=== PATIENT | female | born 2000 | race African-American/Black ===

== ENCOUNTER 2025-01-24 10:26 | Outpatient (REF) | payer OTHER, SELFPAY ==
--- OUTSIDE RECORDS SUMMARY | 2025-01-24 12:25 | XMS_ITS | Clinical Summary ---
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 2 Active sertraline (ZOLOFT) 50 mg tablet Take 1 tablet (50 mg total) by mouth 1 (one) time each day. 30 tablet 1 5 Active tretinoin (RETIN-A) 0.025 % cream Apply topically at bedtime. 20 g 5 5 06/17/19 26 Active cyclobenzaprine (FLEXERIL) 10 mg tablet Take 1 tablet (10 mg total) by mouth 3 (three) times a day if needed for muscle spasms for up to 10 days. 15 tablet 5 Active ibuprofen (ADVIL,MOTRIN) 400 mg tablet Take 1 tablet (400 mg total) by mouth every 6 (six) hours if needed for mild pain for up to 10 days. 30 tablet 5 01/07/20 25 acetaminophen (TYLENOL) 500 mg tablet Take 1 tablet (500 mg total) by mouth every 6 (six) hours if needed for mild pain for up to 10 days. 30 tablet 5 01/07/20 25 lidocaine (LIDODERM) 5 % patch Apply 1 patch topically 1 (one) time each day for 9 days. Remove & discard patch within 12 hours or as directed by . 9 each 5 01/06/20 25 Active Problems No known active problems Encounters Date Type Department Care Team Description 12/27/2024 11:59 AM EDT - 12/27/2024 2:06 PM EDT Emergency [facility] Emergency [address] [place] [id number] Julianna De Dios MD Strain of neck muscle, initial encounter (Primary Dx) Discharge Disposition: Home or Self Care from Last 3 Months Immunizations Immunization Administration Dates Next Due DTaP (Infanrix) 6wks to less than 7yo ,01/14/2001,02/03/2000,11/23,1999 [id number] (Pentacel) 2mo to less than 5yo 07/08/2000,02/03/2000,1999,05/05 HPV 9-valent (Gardisil) 9yo to less than 46yo 04/23/2016,04/19/2015 HPV, Quadrivalent 01/03/2013 Hepatitis B Pediatric (Enger ix B; Recombivax HB) to less than 20 yo 07/08/2000,1999,1999 IPV Inactivated polio (Ipol) 6wks and older 06/26/2004,01/14/2001,02/03/2000,11/23,1999 Influenza trivalent, 0.5mL, preservative free (Fluarix; FluLaval; Fluzone) ages 6mo and older (Afluria) 3 years and older 02/20/2014 Influenza trivalent, MDCK, 0 .5mL, preservative free (Flucelvax) 6mo and older 04/13/2024 Influenza trivalent, with pr eservative (Fluzone; Afluria) 6mo and older 04/23/2016 Influenza, live, intranasal, trivalent (FluMist) 2yo to less than 50yo 04/19/2015,01/03/2013 MMR, measles mumps and rubel la Live (Priorix; M-M-R II) 12mo and older 12/27/2003,07/08/2000 Meningococcal MCV4P 04/23/2016,12/31/2011 Pneumococcal Conjugate Vacci ne, 7 Valent 01/14/2001 Tdap Tetanus diptheria acell ular pertussis (Boostrix; Adacel) 7yo and older 04/03/2021,11/14/2010 Varicella live (Varivax) 12m o and older 08/16/2009,04/22/2001 Family History Medical History Relation Name Comments Diabetes Maternal Grandmother Hypertension Maternal Grandmother Depression Mother Thyroid disease Mother Asthma Other 1 MATERNAL & SAVAGE RNAL SIDE Other: HEART Other 2 MGGM Relation Name Status Comments Brother treva colvin- Father Alive Maternal Grandmother Alive Mother Alive sonia campos- Other 1 Other 2 Paternal Grandfather Alive Paternal Grandmother Alive Sister 1 Alive opal hazel-1 Sister 2 Alive prakash beckford -01/28/01 Social History Tobacco Use Types Packs/Day Years Used Date Smoking Tobacco: Never Smokeless Tobacco: Never Tobacco Cessation:Counseling Given: Yes Alcohol Use Standard Drinks/Week Comments No 0 (1 standard drink = 0.6 oz pur e alcohol) Housing Instability Answer Date Recorde d Are you worried that in the next 2 months you may not have stable housing? No 04/12/2024 Food Access & Nutrition Answer Date Rec orded Do you have access to a vari ety of food including fruits and vegetables? Yes 04/12/2024 Access to Healthcare Answer Date Record ed Within the last 3 months, ho w many times did you visit the emergency department for your medical care? 0 04/12/2024 Health Literacy Answer Date Recorded How often do you need to hav e someone help you when you read instructions, pamphlets, or other written material from your doctor or pharmacy? Never 04/12/2024 Caregiver: How often do you need to have someone help you when you read instructions, pamphlets, or other written material from your doctor or pharmacy? Not on file 04/12/2024 Financial Risk Answer Date Recorded How hard is it for you to pa y for the very basics like food, housing, medical care, and air conditioning / heating? Not very hard 04/12/2024 Transportation Answer Date Recorded Has the lack of transportati on kept you from meetings, work, or from getting things needed for daily living? No Has the lack of transportati on kept you from medical appointments or from getting medications? No 04/12/2024 Social Isolation Answer Date Recorded How often do you feel lonely or isolated from th ose around you? Often 04/12/2024 Food Risk Answer Date Recorded Within the past 12 months we worried whether our food would run out before we got money to buy more. Never true 04/12/2024 Within the past 12 months th e food we bought just didn't last and we didn't have money to get more. Never true 04/12/2024 Dependent Care Answer Date Recorded Do you need help finding or paying for care for your loved ones. For example, child welfare specialist or elderly care for an older adult? No 04/12/2024 Education Answer Date Recorded Do you think completing more education or training, like finishing a GED, going to college, or learning a trade, would be helpful for you? N/A 04/12/2024 Employment and Income Answer Date Recor ded During the last four weeks, have you been actively looking for work? No 04/12/2024 Living Situation Answer Date Recorded What is your living situation? Unrecognized valu e 04/12/2024 Comments No Sex and Gender Information Value Date Recorded Sex Assigned at Female 02/17/2022 7:25 AM EST Legal Sex Female 7:19 AM EST Gender Identity Female 02/17/2022 7:25 AM EST Sexual Orientation Straight 02/17/2022 7: 25 AM EST Obstetrics History Last Filed Vital Signs Vital Sign Reading Time Taken Comments Blood Pressure 131/67 12/27/2024 11:46 AM EDT Pulse 76 12/27/2024 11:46 AM EDT Temperature 36.5 C (97.7 F) 12/27/2024 11:46 AM EDT Respiratory Rate 18 12/27/2024 11:46 AM EDT Oxygen Saturation 100% 12/27/2024 11:46 AM EDT Inhaled Oxygen Concentration - - Weight 75.8 kg (167 lb) 12/27/2024 11:46 AM EDT Height 152.4 cm (5') 12/27/2024 11:46 AM EDT Body Mass Index 32.61 12/27/2024 11:46 AM EDT Plan of Treatment Health Maintenance Due Date Last Done Comments Cervical Cancer Screening: Pap Smear 07/28/2024 07/28/2021 Influenza Vaccine (#1) 2024 , 02/20/2021, 01/10/2019, Additional history exists Social Influencers of Health Screening 04/12/2025 04/12/2024 Cholesterol Screening (Lipid Panel) 04/13/2029 04/13/2024 DTaP,Tdap,and Td Vaccines (9 - Td or Tdap) 04/03/2031 04/03/2021, 10/27/2018, 11/14/2010, Additional history exists RSV Immunization Adult Patients (1 - 1-dose 75+ series) 2074 HIB Vaccines Completed 07/08/2000, 06/11, 02/03/2000, Additional history exists Hepatitis B Vaccines Completed 07/08/2000, 1999, 1999 Pneumococcal Vaccine: Pediatrics (0 to 5 Years) and At-Risk Patients (6 to 49 Years) Aged Out 01/14/2001 No longer eligible based on patient's age to complete this topic MMR Vaccines Completed 12/27/2003, 07/08/2000 IPV Vaccines Completed 06/26/2004, 08/2000, 07/08/2000, Additional history exists Varicella Vaccines Completed 08/16/2009, 04/22/2001 HPV Vaccines Completed 04/23/2016, 11/2015, 01/03/2013 Meningococcal ACWY Vaccine Completed 04/23/2016, Gonorrhea/Chlamydia Screening Discontinued 09/26/2019 Depression Screening Completed 04/12/2024 HIV Screening Completed 04/13/2024, 09/26/2019 Hepatitis C Screening Completed 04/13/2024, 020 COVID-19 Vaccine Discontinued Hepatitis A Vaccines Aged Out No long er eligible based on patient's age to complete this topic Meningococcal B Vaccine Aged Out No l onger eligible based on patient's age to complete this topic RSV Immunization Patients Under 20 months Aged Out No longer eligible based on patient's age to complete this topic Procedures Procedure Name Priority Date/Time Associated Diagnosis Comments HEPATITIS PANEL, ACUTE WITH REFLEX TO CONFIRMATION Routine 04/13/2024 12:05 PM EST Screen for STD (sexually transmitted disease) HIV 1, 2 ANTIBODY, P24 ANTIGEN WITH REFLEX TO DIFFERENTIATION Routine 04/13/2024 12:05 PM EST Screen for STD (sexually transmitted disease) LIPID PANEL WITH REFLEX TO DIRECT LDL Routine 04/13/2024 12:05 PM EST Screening, lipid HM GONORRHEA/CHLAMYDIA SCRREENING Routine 09/26/2019 from Last 3 Months or Most Recently Relevant to Health Maintenance Results * HIV 1,2 antibody, p24 antigen with reflex to differentiation (04/13/2024 12:05 PM EST) HIV Combo AB/AG Negative Negative LAB CHEMISTRY METHOD 04/13/2024 3:53 PM EST [facility] Blood Venous blood specimen / Unknown Venipuncture / Unknown 04/13/2024 12:05 PM EST 04/13/2024 12:05 PM EST Narrative [facility] - 04/13/2024 3:53 PM EST This assay is a 4th generation assay allowing for earlier detection of HIV infection by detecting the presence of the HIV-1 p24 antigen as well as the traditional antibodies to HIV type 1 (including group O) and type 2. Use of a 4th generation assay is the current CDC recommendation for HIV screening. us Joshua Hanson MD LAB BLOOD ORDERABLES Final Resu lt [facility] [address] [place] [address], [place] [phone] * Lipid panel with reflex to direct LDL (04/13/2024 12:05 PM EST) Pathologist [facility] Cholesterol 169 0 - 200 mg/dL LAB CHEMISTRY METHOD 04/13/2024 3:07 PM EST [facility] Triglycerides 78 0 - 150 mg/dL LAB CHEMISTRY METHOD 04/13/2024 3:07 PM EST [facility] HDL 60 >=40 mg/dL LAB CHEMISTRY METHOD 04/13/2024 3:07 PM [facility] LDL Calculated 93 0 - 100 mg/dL LAB CHEMISTRY METHOD 04/13/2024 3:07 PM [facility] VLDL Cholesterol Chas 15.6 mg/dL LAB CHEMISTRY METHOD 04/13/2024 3:07 PM [facility] Non HDL Chol. (LDL+VLDL) 109 <145 mg/dL LAB CHEMISTRY METHOD 04/13/2024 3:07 PM [facility] Chol/HDL Ratio 2.8 0.0 - 4.4 LAB CHEMISTRY METHOD 04/13/2024 3:07 PM [facility] Blood Venous blood specimen / Unknown Venipuncture / Unknown 04/13/2024 12:05 PM EST 04/13/2024 12:05 PM EST us Joshua Hanson MD LAB BLOOD ORDERABLES Final Resu lt [facility] [address] [place] [address], [place] [phone] * Hepatitis panel, acute with reflex to confirmation (04/13/2024 12:05 PM EST) Hepatitis B Surface Ag Negative Negative LAB CHEMISTRY METHOD 04/13/2024 4:01 PM [facility] Hepatitis A Antibody IgM Negative Negative LAB CHEMISTRY METHOD 04/13/2024 4:01 PM [facility] Hep B Core IgM Negative Negative LAB CHEMISTRY METHOD 04/13/2024 4:01 PM [facility] Hepatitis C Antibody Negative Negative LAB CHEMISTRY METHOD 04/13/2024 4:01 PM [facility] Blood Venous blood specimen / Unknown Venipuncture / Unknown 04/13/2024 12:05 PM EST 04/13/2024 12:05 PM EST us Joshua Hanson MD LAB BLOOD ORDERABLES Final Resu lt [facility] [address] [place] [address], * Gonorrhea/Chlamydia Screening (09/26/2019) [facility] Gonorrhea/Chla mydia Screening abstracted Historical Provider HEALTH MAINTENANCE Final Result from Last 3 Months or Most Recently Relevant to Health Maintenance Insurance [facility] Patient Home Monitoring PLAN Care Teams [employer] Worker Relationship Specialty Start Date End Date Joshua Hanson MD [address] [place] [id number] PCP - General Internal Medicine 04/07/24
== END 2025-01-24 10:27 | disposition home or self-care (01) ==
LOC: CF 10:26
DX: Z13.89 Encounter for screening for other disorder (principal)

== ENCOUNTER 2025-01-30 09:08 | Outpatient (AMB) | payer OTHER, SELFPAY ==
--- NOTE | 2025-01-30 09:38 | A.OFFVIS_ITS ---
Vital Signs 01/30/25 09:46 Height 5 ft Weight 160 lb BMI 31.2 Handedness Left Intake Visit Reasons: UC RT lateral malleolus fx Intake Note: Ava is a 24 year old female who presents today with a tall walking boot for a evaluation of her right lateral malleolus fracture, DOI 01/20/25. Patient reports she was going down the stairs with her daughter and she missed the last step. She mentions that her pain is worse when applying pressure just to stand. Patient reports having a numbing sensation on the top of the foot and lateral aspect. Duty for work: on her feet for 8 + hours, works 5 days a week M-F, stocking, lifting heavy boxes, always speed walking from on section of the room to the other, lifts no more than 50lbs Information Interpreted: non-clinical & clinical Allergies No Known Allergies Allergy (Verified 01/30/25 09:42) HPI HPI UC RT lateral malleolus fx: Details: Ms. Ramirez is a 24-year-old female who presents today for evaluation of a right ankle injury that she sustained on 01/20/2025. She states that she was going down a set of stairs and missed the last step causing an inversion injury to the right ankle. She felt immediate pain in her to cracking sounds. Patient was seen as an outside facility where x-rays were obtained and she was educated that she had a fracture. She was provided with a tall walking boot and instructed to follow up with orthopedics outpatient for further evaluation and treatment. Patient reports that she has been weight-bearing some on the right lower extremity but is using a knee scooter to help get around for the most part due to pain. [facility] Social History (Updated 01/30/25 @ 09:44 by Subhash Jacobson) Alcohol intake: never Patient Tobacco Use Status: Never used Tobacco Current occupational status: employed Current occupation: [employer] Review of Systems Const All systems reviewed & are unremarkable except as noted in HPI and below Physical Exam Vital Signs: BMI result Body Mass Index 31.2 Const General: cooperative, healthy appearing and no acute distress Resp Effort & Inspection: normal respiratory effort and able to speak in complete sentences Extrem Other: Right ankle circumferential moderate edema extending into the dorsal aspect of the foot. Tenderness to palpation distal fibula. Reports the last 3 digits feel heavy and occasionally have numbness. Capillary refill is brisk. Pedal pulse intact. Psych Appearance: grossly normal Mental Status: mental status grossly normal Attitude: cooperative Assessment & Plan Assessment & Plan (1) Fracture of distal end of right fibula: Code(s): S82.831A - Other fracture of upper and lower end of right fibula, initial encounter for closed fracture Category: Medical Plan Ms. Ramirez is a 24-year-old female who presents today for evaluation of a right ankle injury that she sustained on 01/20/2025. She states that she was going down a set of stairs and missed the last step causing an inversion injury to the right ankle. She felt immediate pain in her to cracking sounds. Patient was seen as an outside facility where x-rays were obtained and she was educated that she had a fracture. She was provided with a tall walking boot and instructed to follow up with orthopedics outpatient for further evaluation and treatment. Patient reports that she has been weight-bearing some on the right lower extremity but is using a knee scooter to help get around for the most part due to pain. While in the office today, repeat x-rays were obtained and redemonstrate right distal fibular fracture with minimal displacement. The ankle mortise appears to be intact. The patient was placed back into a tall walking boot and instructed to weightbear as tolerated. At this time patient has moderate edema and difficulty with ambulation and therefore is using a knee scooter to assist. I educated the patient the importance of elevating above heart level as much as possible to help with the edema. I have also placed an order for physical therapy to begin working on gentle range of motion. She will remain in the boot for the next 4 weeks until her follow up appointment with me with repeat x-rays, sooner if needed. Orders: Orders XR ankle RT min 3V Today M25.579 - Pain in unspecified ankle and joints of unspecified foot Coding Level of Care Code New Pt Level 4 (99828) Diagnoses Fracture of distal end of right fibula S82.831A
[2025-01-30 09:46] VITALS: BMI 31.2
== END 2025-01-30 10:06 | disposition home or self-care (01) ==
LOC: HO.HOS 09:09
PROVIDERS: Visit Provider Physician Assistant
DX: S82.831A Other fracture of upper and lower end of right fibula, initial encounter for closed fracture (principal)
CPT/HCPCS: 99203

== ENCOUNTER 2025-01-30 10:07 | Outpatient (REF) | payer OTHER, SELFPAY ==
--- NOTE | ~2025-01-30 | XR_ITS ---
EXAMINATION: XR ANKLE, RIGHT CLINICAL INFORMATION: M25.579 - Pain in unspecified ankle and joints of unspecified foot COMPARISON: X-ray 01/22/2025 TECHNIQUE: AP, lateral, and mortise views of the right ankle. FINDINGS: Oblique, mildly distracted/displaced fracture planes of the distal fibular metaphysis, extending to the level of the syndesmosis. Stable position and alignment.. No significant callus formation is seen. No additional acute fractures identified. Ankle mortise is within normal limits. No talar dome OCD. Soft tissue swelling. Small ankle joint effusion.. XR/XR ankle RT min 3V IMPRESSION: Oblique mildly displaced distal fibular fracture, stable position and alignment. No significant callus formation is seen. Electronically signed by: Robin Quintero MD 01/31/2025 07:19 AM EDT
--- OUTSIDE RECORDS SUMMARY | 2025-02-01 12:00 | XMS_ITS | Clinical Summary ---
Author Organization Patient Business [facility] Address [address] [place] [address] Care Team Providers Care Ec Teacher Name Role Phone Joshua Hanson MD Primary Care Provider [phone] Allergies No known active allergies Medications ibuprofen [...] EDT - 12/27/2024 2:06 PM EDT Emergency [facility] Emergency [address] [place] [phone] Julianna De Dios MD Strain of neck muscle, initial encounter (Primary Dx) Discharge Disposition: Home or Self Care from Last 3 Months Immunizations Immunization Administration Dates Next Due DTaP (Infanrix) 6wks to less than 7yo ,01/14/2001,02/03/2000,11/23,1999 [id number] (Pentacel) 2mo to less than 5yo 07/08/2000,02/03/2000,1999,05/05 [...] care for your loved ones. For example, exceptional children teacher assistant or elderly care for an older adult? [...] LAB CHEMISTRY METHOD 04/13/2024 3:53 PM EST [facility] Blood Venous blood specimen / Unknown Venipuncture / Unknown 04/13/2024 12:05 PM EST 04/13/2024 12:05 PM EST Narrative [facility] - 04/13/2024 3:53 PM EST [...] MD LAB BLOOD ORDERABLES Final Resu lt [facility] [address] [place] [address], [place] [phone] * Lipid panel with reflex to direct LDL (04/13/2024 12:05 PM EST) Pathologist [facility] Cholesterol 169 0 - 200 mg/dL LAB CHEMISTRY METHOD 04/13/2024 3:07 PM EST [facility] Triglycerides 78 0 - 150 mg/dL LAB CHEMISTRY METHOD 04/13/2024 3:07 PM EST [facility] HDL 60 >=40 mg/dL LAB CHEMISTRY METHOD 04/13/2024 3:07 PM [facility] LDL Calculated 93 0 - 100 mg/dL LAB CHEMISTRY METHOD 04/13/2024 3:07 PM [facility] VLDL Cholesterol Chas 15.6 mg/dL LAB CHEMISTRY METHOD 04/13/2024 3:07 PM [facility] Non HDL Chol. (LDL+VLDL) 109 <145 mg/dL LAB CHEMISTRY METHOD 04/13/2024 3:07 PM [facility] Chol/HDL Ratio 2.8 0.0 - 4.4 LAB CHEMISTRY METHOD 04/13/2024 3:07 PM [facility] Blood Venous blood specimen / Unknown Venipuncture / Unknown 04/13/2024 12:05 PM EST 04/13/2024 12:05 PM EST us Joshua Hanson MD LAB BLOOD ORDERABLES Final Resu lt [facility] [address] [place] [address], [place] [phone] * Hepatitis panel, acute with reflex to confirmation (04/13/2024 12:05 PM EST) Hepatitis B Surface Ag Negative Negative LAB CHEMISTRY METHOD 04/13/2024 4:01 PM [facility] Hepatitis A Antibody IgM Negative Negative LAB CHEMISTRY METHOD 04/13/2024 4:01 PM [facility] Hep B Core IgM Negative Negative LAB CHEMISTRY METHOD 04/13/2024 4:01 PM [facility] Hepatitis C Antibody Negative Negative LAB CHEMISTRY METHOD 04/13/2024 4:01 PM [facility] Blood Venous blood specimen / Unknown Venipuncture / Unknown 04/13/2024 12:05 PM EST 04/13/2024 12:05 PM EST us Joshua Hanson MD LAB BLOOD ORDERABLES Final Resu lt [facility] [address] [place] [address], * Gonorrhea/Chlamydia Screening (09/26/2019) [facility] Gonorrhea/Chla mydia Screening abstracted Historical Provider HEALTH MAINTENANCE Final Result from Last 3 Months or Most Recently Relevant to Health Maintenance Insurance [facility] [employer] PL[employer] Care Teams Ec Teacher Relationship Specialty Start Date End Date Joshua Hanson MD [address] [place] [id number] PCP - General Internal Medicine 04/07/24
== END 2025-01-30 10:08 | disposition home or self-care (01) ==
LOC: HO.HOSX 10:07
PROVIDERS: Visit Provider Physician Assistant
DX: S82.831D Other fracture of upper and lower end of right fibula, subsequent encounter for closed fracture with routine healing (principal); M25.571 Pain in right ankle and joints of right foot; W10.8XXD Fall (on) (from) other stairs and steps, subsequent encounter
CPT/HCPCS: 73610; 99202

== ENCOUNTER 2025-02-27 08:10 | Outpatient (REF) | payer OTHER, SELFPAY ==
--- NOTE | ~2025-02-27 | XR_ITS ---
EXAMINATION: XR ANKLE, right CLINICAL INFORMATION: M25.579 - Pain in unspecified ankle and joints of unspecified foot COMPARISON: January 30, 2025 TECHNIQUE: AP, lateral, and mortise views lower extremity joint, ankle. FINDINGS: Nondisplaced fracture through the distal fibula that extends posteriorly and superiorly from the anterior syndesmotic ligament is more visible on the current examination. There is also visible periosteal new bone formation. There is no displacement of the fracture. Ankle mortise is congruent. There is no widening of the syndesmosis. Talar dome is intact. There are no calcaneal enthesophyte(s). XR/XR ankle RT min 3V IMPRESSION: Healing lateral malleolar fracture that extends up from the anterior syndesmotic ligament. Electronically signed by: Brijesh Meneses MD 02/27/2025 10:00 AM KAT[facility]IN
--- OUTSIDE RECORDS SUMMARY | 2025-02-28 15:42 | XMS_ITS | Clinical Summary ---
Author Organization Patient Business [facility] Address [address] [place] [address] Care Team Providers Care Telemetry Rn Name Role Phone Joshua Hanson MD Primary Care Provider [phone] Allergies No known active allergies Medications ibuprofen [...] to 10 days. 15 tablet 5 Active Active Problems No known active problems Encounters Date Type Department Care Team Description 12/27/2024 11:59 AM EDT - 12/27/2024 2:06 PM EDT Emergency [facility] Emergency [address] [place] [address] Julianna De Dios MD Strain of neck muscle, initial encounter (Primary Dx) Discharge Disposition: Home or Self Care from Last 3 Months Immunizations Immunization Administration Dates Next Due DTaP (Infanrix) 6wks to less than 7yo ,01/14/2001,02/03/2000,11/23,1999 [id number] (Pentacel) 2mo to less than 5yo 07/08/2000,02/03/2000,1999,05/05 [...] care for your loved ones. For example, infant childcare provider or elderly care for an older adult? [...] Negative LAB CHEMISTRY METHOD 04/13/2024 3:53 PM [facility] Blood Venous blood specimen / Unknown Venipuncture / Unknown 04/13/2024 12:05 PM EST 04/13/2024 12:05 PM EST [facility] - 04/13/2024 3:53 PM EST This [...] MD LAB BLOOD ORDERABLES Final Resu lt [facility] [address] [place] [address], [place] [phone] * Lipid panel with reflex to direct LDL (04/13/2024 12:05 PM EST) [facility] Cholesterol 169 0 - 200 mg/dL LAB CHEMISTRY METHOD 04/13/2024 3:07 PM [facility] Triglycerides 78 0 - 150 mg/dL LAB CHEMISTRY METHOD 04/13/2024 3:07 PM [facility] HDL 60 >=40 mg/dL LAB CHEMISTRY METHOD 04/13/2024 3:07 PM [facility] LDL Calculated 93 0 - 100 mg/dL LAB CHEMISTRY METHOD 04/13/2024 3:07 PM [facility] VLDL Cholesterol Chas 15.6 mg/dL LAB CHEMISTRY METHOD 04/13/2024 3:07 PM [facility] Non HDL Chol. (LDL+VLDL) 109 <145 mg/dL LAB CHEMISTRY METHOD 04/13/2024 3:07 PM [facility] Chol/HDL Ratio 2.8 0.0 - 4.4 LAB CHEMISTRY METHOD 04/13/2024 3:07 PM EST [facility] Blood Venous blood specimen / Unknown Venipuncture / Unknown 04/13/2024 12:05 PM EST 04/13/2024 12:05 PM EST Joshua Hanson MD LAB BLOOD ORDERABLES Final Resu lt Performing Organization Address City/[facility]/ZIP Co de Phone Number [facility] [address] [place] [address], [place] [phone] * Hepatitis panel, acute with reflex to confirmation (04/13/2024 12:05 PM EST) Hepatitis B Surface Ag Negative Negative LAB CHEMISTRY METHOD 04/13/2024 4:01 PM [facility] Hepatitis A Antibody IgM Negative Negative LAB CHEMISTRY METHOD 04/13/2024 4:01 PM [facility] Hep B Core IgM Negative Negative LAB CHEMISTRY METHOD 04/13/2024 4:01 PM EST [facility] Hepatitis C Antibody Negative Negative LAB CHEMISTRY METHOD 04/13/2024 4:01 PM [facility] Blood Venous blood specimen / Unknown Venipuncture / Unknown 04/13/2024 12:05 PM EST 04/13/2024 12:05 PM EST Joshua Hanson MD LAB BLOOD ORDERABLES Final Resu lt [facility] [address] [place] [address], [place] [phone] * Hm Gonorrhea/Chlamydia Screening (09/26/2019) Gonorrhea/Chla mydia Screening abstracted Rubi Provider HEALTH MAINTENANCE Final Result from Last 3 Months or Most Recently Relevant to Health Maintenance Insurance [facility] Care Teams Telemetry Rn Relationship Specialty Start Date End Date Joshua Hanson MD [address] [place] [id number] PCP - General Internal Medicine 04/07/24
== END 2025-02-27 08:11 | disposition home or self-care (01) ==
LOC: HO.HOSX 08:10
PROVIDERS: Visit Provider Physician Assistant
DX: S82.831D Other fracture of upper and lower end of right fibula, subsequent encounter for closed fracture with routine healing (principal); X58.XXXD Exposure to other specified factors, subsequent encounter
CPT/HCPCS: 73610

== ENCOUNTER 2025-02-27 09:42 | Outpatient (AMB) | payer OTHER, SELFPAY ==
--- NOTE | 2025-02-27 09:58 | A.OFFVIS_ITS ---
Intake Visit Reasons: FC RT lateral malleolus fx Intake Note: Ava is a 24 year old female who presents today with a tall walking boot for a evaluation of her right lateral malleolus fracture, DOI 01/20/25. Patient reports she is doing a little better today. Allergies No Known Allergies Allergy (Verified 02/27/25 10:12) HPI HPI FC RT lateral malleolus fx: Details: Ms. Ramirez is a 25-year-old female who presents to the office today for routine follow up of a right lateral malleolar fracture. Date of injury was 01/20/2025. She was last seen in our office on 01/30/2025 with the patient was instructed to remain in the tall walking boot and weightbear as tolerated. Additionally, she was referred to physical therapy to work on range of motion, edema management and gait training in the boot. Patient reports that her pain has been improving and she has been working with physical therapy. No additional complaints at this time. [facility] Social History Alcohol intake: never Patient Tobacco Use Status: Never used Tobacco Current occupational status: employed Current occupation: [employer] Review of Systems Const All systems reviewed & are unremarkable except as noted in HPI and below Physical Exam Const General: cooperative, healthy appearing and no acute distress Resp Effort & Inspection: normal respiratory effort and able to speak in complete sentences Extrem Other: Right ankle mild lateral edema. Able to perform dorsiflexion, plantar flexion, pronation and supination with slight limitations due to pain and stiffness. Tenderness to palpation over the right lateral malleolus. Sensation is intact. Pedal pulse intact. Psych Appearance: grossly normal Mental Status: mental status grossly normal Attitude: cooperative Assessment & Plan Assessment & Plan (1) Fracture of distal end of right fibula: Code(s): S82.831A - Other fracture of upper and lower end of right fibula, initial encounter for closed fracture Category: Medical Plan Ms. Ramirez is a 25-year-old female who presents to the office today for routine follow up of a right lateral malleolar fracture. Date of injury was 01/20/2025. She was last seen in our office on 01/30/2025 with the patient was instructed to remain in the tall walking boot and weightbear as tolerated. Additionally, she was referred to physical therapy to work on range of motion, edema management and gait training in the boot. Patient reports that her pain has been improving and she has been working with physical therapy. No additional complaints at this time. While in the office today, the patient was instructed to wean out of the boot in the next week to bring her 6 weeks in the tall walking boot status post her injury. She will continue to work with physical therapy who will assist her with weaning out of the boot in the next week. I also fit the patient for a lace-up ankle brace off the shelf while in the office today that she can wear during activities after the discontinuation of the boot. She will follow up in 6 weeks with repeat x-rays, sooner if needed. X-rays of the right ankle which were obtained while in the office today and were reviewed by me, Teresa Robbins PA-C, revealed routine healing right distal fibular fracture at the level of the ankle syndesmosis. There is no disruption of the ankle mortise. Orders: Orders XR ankle RT min 3V Today M25.579 - Pain in unspecified ankle and joints of unspecified foot Coding Level of Care Code Est Pt Level 3 (95179) Diagnoses Fracture of distal end of right fibula S82.831A
== END 2025-02-27 10:25 | disposition home or self-care (01) ==
LOC: HO.HOS 09:43
PROVIDERS: Visit Provider Physician Assistant
DX: S82.831A Other fracture of upper and lower end of right fibula, initial encounter for closed fracture (principal)
CPT/HCPCS: 99213

== ENCOUNTER → 2025-02-27 09:44 | Outpatient (BNV) | payer OTHER, SELFPAY | PROVIDERS: Visit Provider Radiology Diagnostic Radiology | DX: M25.571 Pain in right ankle and joints of right foot (principal) | CPT/HCPCS: 73610 ==

== ENCOUNTER 2025-03-12 09:28 | Outpatient (RCR) | payer OTHER, SELFPAY ==
--- NOTE | 2025-02-19 14:08 | MHC.PT.DC ---
[facility] Office [place] Office [place] Office [address] Zane Bustillos 140 [facility] [phone] F: [phone] F: [phone] F: [phone] F: [phone] Physical Therapy Discharge Report Diagnosis: fracture of distal end of right fibula (RL) Date of Surgery: N/A Date of Evaluation: 02/16/25 Date of Discharge: Treatments to Date: 1 Cancellations to Date: 0 No Shows to Date: 0 Discharge Status: Discharge Summary: pt is a 24 y/o female presenting to physical therapy w/ referring diagnosis of fracture of distal end of right fibula. Impairments include pain, decreased range of motion, decreased strength, impaired functional mobility, impaired postural awareness, and altered ambulation mechanics. pt is a good candidate for skilled PT due to age, potential remediation of impairments, typical disease/condition progression and prognosis, comorbidities, and motivation. pt would benefit from skilled PT intervention to provide a tailored strengthening and stretching exercise program, functional training, gait training, postural re-training, neuromuscular re-education, modalities as needed for pain, equipment safety demonstration. Electronically signed by: Please sign and return to therapist. Thank you for your referral.
--- NOTE | 2025-04-09 14:54 | MHC.PT.DC ---
[facility] [place] Office [place] Office [place] Office [address] Zane Bustillos [address] [phone] F: [phone] F: [phone] F: [phone] F: [phone] Physical Therapy Discharge Report Diagnosis: fracture of distal end of right fibula (RL) Date of Surgery: N/A Date of Evaluation: 02/16/25 Date of Discharge: 04/09/25 Treatments to Date: 5 Cancellations to Date: 5 No Shows to Date: 4 Discharge Status: Visit Non-compliance Discharge Summary: The patient has had poor attendance compliance during this plan of care. She is discharged at this time. Electronically signed by: Aliyah Barrera PT, DPT Please sign and return to therapist. Thank you for your referral.
== END 2025-04-09 14:54 | disposition home or self-care (01) ==
LOC: HO.PT 09:28
PROVIDERS: PCP Internal Medicine; Visit Provider Physician Assistant
DX: S82.831D Other fracture of upper and lower end of right fibula, subsequent encounter for closed fracture with routine healing (principal)
CPT/HCPCS: 97110; 97161; 97530

== ENCOUNTER 2025-04-10 08:45 | Outpatient (REF) | payer OTHER, SELFPAY ==
--- OUTSIDE RECORDS SUMMARY | 2025-04-13 08:48 | XMS_ITS | Clinical Summary ---
Author Organization Patient Business [facility] Address [address] [place] [address] Care Team Providers Care [employer]spring Former Arbor End Name Role Phone Joshua Hanson MD Primary Care Provider [phone] Allergies No known active allergies Medications ibuprofen [...] (Infanrix) 6wks to less than 7yo ,01/14/2001,02/03/2000,11/23,1999 [id number] (Pentacel) 2mo to less than 5yo 07/08/2000,02/03/2000,1999,05/05 [...] for your loved ones. For example, child nurse or elderly care for an older adult? [...] LAB CHEMISTRY METHOD 04/13/2024 3:53 PM EST [facility] ([facility]) [facility] Blood Venous blood specimen / Unknown Venipuncture / Unknown 04/13/2024 12:05 PM EST 04/13/2024 12:05 PM EST Narrative [facility] - 04/13/2024 3:53 PM [...] ORDERABLES Final Resu lt Performing Organization Address City/[facility]/ZIP Co de Phone Number [facility] [address] [place] [address], [place] [phone] * Lipid panel with reflex to direct LDL (04/13/2024 12:05 PM EST) Cholesterol 169 0 - 200 mg/dL LAB CHEMISTRY METHOD 04/13/2024 3:07 PM [facility] Triglycerides 78 0 - 150 mg/dL LAB CHEMISTRY METHOD 04/13/2024 3:07 PM [facility] HDL 60 >=40 mg/dL LAB CHEMISTRY METHOD 04/13/2024 3:07 PM [facility] LDL Calculated 93 0 - 100 mg/dL LAB CHEMISTRY METHOD 04/13/2024 3:07 PM [facility] VLDL Cholesterol Chas 15.6 mg/dL LAB CHEMISTRY METHOD 04/13/2024 3:07 PM [facility] Non HDL Chol. (LDL+VLDL) 109 <145 mg/dL LAB CHEMISTRY METHOD 04/13/2024 3:07 PM [facility] Chol/HDL Ratio 2.8 0.0 - 4.4 LAB CHEMISTRY METHOD 04/13/2024 3:07 PM [facility] Blood Venous blood specimen / Unknown Venipuncture / Unknown 04/13/2024 12:05 PM EST 04/13/2024 12:05 PM EST Joshua Hanson MD LAB BLOOD ORDERABLES Final Resu lt Performing Organization Address City/[facility]/ZIP Co de Phone Number [facility] [address] [place] [address], [place] [phone] * Hepatitis panel, acute with reflex to confirmation (04/13/2024 12:05 PM EST) Hepatitis B Surface Ag Negative Negative LAB CHEMISTRY METHOD 04/13/2024 4:01 PM EST [facility] Hepatitis A Antibody IgM Negative Negative LAB CHEMISTRY METHOD 04/13/2024 4:01 PM EST [facility] Hep B Core IgM Negative Negative LAB CHEMISTRY METHOD 04/13/2024 4:01 PM EST [facility] Hepatitis C Antibody Negative Negative LAB CHEMISTRY METHOD 04/13/2024 4:01 PM EST [facility] Blood Venous blood specimen / Unknown Venipuncture / Unknown 04/13/2024 12:05 PM EST 04/13/2024 12:05 PM EST Joshua Hanson MD LAB BLOOD ORDERABLES Final Resu lt Performing Organization Address City/[facility]/ZIP Co de Phone Number [facility] [address] [place] [address], * Hm Gonorrhea/Chlamydia Screening (09/26/2019) Gonorrhea/Chla mydia Screening abstracted Historical Provider HEALTH MAINTENANCE Final Result from Last 3 Months or Most Recently Relevant to Health Maintenance Insurance [facility] [employer] [employer] Care Teams Mainspring Former Arbor End Relationship Specialty Start Date End Date Joshua Hanson MD [address] [place] [phone] PCP - General Internal Medicine 04/07/24
== END 2025-04-10 08:46 | disposition home or self-care (01) ==
LOC: HO.HOSX 08:45
PROVIDERS: Visit Provider Physician Assistant
DX: S82.831A Other fracture of upper and lower end of right fibula, initial encounter for closed fracture (principal); X58.XXXA Exposure to other specified factors, initial encounter; Y92.9 Unspecified place or not applicable; Y93.9 Activity, unspecified; Y99.9 Unspecified external cause status
CPT/HCPCS: 99212

== ENCOUNTER 2025-04-10 09:29 | Outpatient (AMB) | payer OTHER, SELFPAY ==
--- NOTE | 2025-04-10 09:36 | MHC.OFFVIS ---
Intake Visit Reasons: OV-FC RT lateral malleolus fx Intake Note: Ava is a 25 year old female who presents today with a tall walking boot for a evaluation of her right lateral malleolus fracture, DOI 01/20/25. At her last visit she was advised to continue to work with physical therapy, who will assist her with weaning out of the boot. Patient reports she is doing better and she finished with physical therapy. She noted that she was sick and she missed her last session. Allergies No Known Allergies Allergy (Verified 04/10/25 09:46) HPI HPI OV-FC RT lateral malleolus fx: Details: The patient is a 25-year-old female who presents to the office today for routine follow up of a right ankle lateral malleolar fracture that occurred on 01/20/2025. At her last appointment on 02/27/2025 she was given a lace-up ankle brace, instructed to wean out of the tall walking boot and continue working with physical therapy. She has finished all physical therapy sessions and started to resume back to normal activities without the use of any assistive devices such as tall walking boot or lace-up ankle brace. She endorses occasional soreness and occasional lateral ankle edema based off of activity. [facility] Social History Alcohol intake: never Patient Tobacco Use Status: Never used Tobacco Current occupational status: employed Current occupation: [employer] Review of Systems Const All systems reviewed & are unremarkable except as noted in HPI and below Physical Exam Const General: cooperative, healthy appearing and no acute distress Resp Effort & Inspection: normal respiratory effort and able to speak in complete sentences Extrem Other: Right ankle mild lateral edema. Able to perform dorsiflexion, plantar flexion, pronation and supination to end range. No tenderness to palpation over the lateral malleolus at the fracture site. Sensation is intact. Pedal pulse intact. Psych Appearance: grossly normal Mental Status: mental status grossly normal Attitude: cooperative Assessment & Plan Assessment & Plan (1) Fracture of distal end of right fibula: Code(s): S82.831A - Other fracture of upper and lower end of right fibula, initial encounter for closed fracture Category: Medical Plan The patient is a 25-year-old female who presents to the office today for routine follow up of a right ankle lateral malleolar fracture that occurred on 01/20/2025. At her last appointment on 02/27/2025 she was given a lace-up ankle brace, instructed to wean out of the tall walking boot and continue working with physical therapy. She has finished all physical therapy sessions and started to resume back to normal activities without the use of any assistive devices such as tall walking boot or lace-up ankle brace. She endorses occasional soreness and occasional lateral ankle edema based off of activity. While in the office today, I instructed the patient to continue performing home exercise program that was demonstrated by physical therapy. We discussed that edema may linger up to 1 year after the injury. Patient understands and accepts this. She will resume back to normal activities as tolerated using pain as her guide. A work note was provided to the patient to return to work full-time regular duty. She will follow up with Orthopedics p.r.n., sooner if needed. Of note, the x-rays were deferred in the office today due to potential . Orders: Orders XR ankle RT min 3V Today M25.579 - Pain in unspecified ankle and joints of unspecified foot Coding Level of Care Code Est Pt Level 3 (27147) Global (00359) Diagnoses Fracture of distal end of right fibula S82.831A
--- OUTSIDE RECORDS SUMMARY | 2025-04-10 12:10 | XMS_ITS | Clinical Summary ---
Author Organization Patient Business Ser [facility] Address [address] [place] [address] Care Team Providers Care Flexo Press Operator Name Role Phone Joshua Hanson MD Primary Care Provider [phone] Allergies No known active allergies Medications ibuprofen [...] Active Active Problems No known active problems Immunizations Immunization Administration Dates Next Due DTaP (Infanrix) 6wks to less than 7yo ,01/14/2001,02/03/2000,11/23,1999 [id number] (Pentacel) 2mo to less than 5yo 07/08/2000,02/03/2000,1999,05/05 [...] care for your loved ones. For example, childbirth educator or elderly care for an older adult? [...] Orientation Straight 02/17/2022 7: 25 AM EST Last Filed Vital Signs Vital Sign Reading [...] LAB CHEMISTRY METHOD 04/13/2024 3:53 PM EST [facility] ([facility]) [facility] Blood Venous blood specimen / Unknown Venipuncture / Unknown 04/13/2024 12:05 PM EST 04/13/2024 12:05 PM EST Narrative [facility] - 04/13/2024 3:53 PM EST This assay is a 4th generation assay allowing for earlier detection of HIV infection by detecting the presence of the HIV-1 p24 antigen as well as the traditional antibodies to HIV type 1 (including group O) and type 2. Use of a 4th generation assay is the current CDC recommendation for HIV screening. Joshua Hanson MD LAB BLOOD ORDERABLES Final Resu lt Performing Organization Address City/[facility]/ZIP Co de Phone Number [facility] [address] [place] [address], [place] [phone] * Lipid panel with reflex to direct LDL (04/13/2024 12:05 PM EST) Cholesterol 169 0 - 200 mg/dL LAB CHEMISTRY METHOD 04/13/2024 3:07 PM [facility] Triglycerides 78 0 - 150 mg/dL LAB CHEMISTRY METHOD 04/13/2024 3:07 PM [facility] HDL 60 >=40 mg/dL LAB [...] ORDERABLES Final Resu lt Performing Organization Address City/[facility]/ZIP Co de Phone Number [facility] [address] [place] [address], [place] [phone] * Hepatitis panel, acute with reflex to confirmation (04/13/2024 12:05 PM EST) Hepatitis B Surface Ag Negative Negative LAB CHEMISTRY METHOD 04/13/2024 4:01 PM EST [facility] Hepatitis A Antibody IgM Negative Negative LAB CHEMISTRY METHOD 04/13/2024 4:01 PM EST [facility] Hep B Core IgM Negative Negative LAB CHEMISTRY METHOD 04/13/2024 4:01 PM EST [facility] Hepatitis C Antibody Negative Negative LAB CHEMISTRY METHOD 04/13/2024 4:01 PM EST [facility] Blood Venous blood specimen / Unknown Venipuncture / Unknown 04/13/2024 12:05 PM EST 04/13/2024 12:05 PM EST Joshua Hanson MD LAB BLOOD ORDERABLES Final Resu lt Performing Organization Address City/[facility]/ZIP Co de Phone Number [facility] [address] [place] [address], * Hm Gonorrhea/Chlamydia Screening (09/26/2019) Gonorrhea/Chla mydia Screening abstracted Historical Provider HEALTH MAINTENANCE Final Result from Last 3 Months or Most Recently Relevant to Health Maintenance Insurance [facility] Care Teams Flexo Press Operator Relationship Specialty Start Date End Date Joshua Hanson MD [address] [place] [phone] PCP - General Internal Medicine 04/07/24
== END 2025-04-10 09:47 | disposition home or self-care (01) ==
LOC: HO.HOS 09:30
PROVIDERS: PCP Internal Medicine; Visit Provider Physician Assistant
DX: S82.831A Other fracture of upper and lower end of right fibula, initial encounter for closed fracture (principal)
CPT/HCPCS: 99213; 99499